=== PATIENT | female | born 1945 | race Caucasian/White ===

== ENCOUNTER 2017-12-27 11:37 | Emergency (ER) | payer MEDICARE ==
--- NOTE | 2017-12-27 11:50 | UC ---
Respiratory Complaint HPI - HPI Summary HPI Summary: 72 y/o female presents to the urgent care c/o sore throat for the past week. Pt reports dry cough and mild nasal congestion developed 3 days ago. Cough is worse at night that is not allowing her to sleep her chest feels congested. Sore throat has resolved. Yesterday she developed mild CONTE about 2/10. She took Excedrin PO and cough drops to alleviate symptoms. As per nurse Pt's HR rate was irregular at the time she took vital signs. Pt PMHX of DM type II and HTN. Pt denies fever, SOB, chest pain, palpitations, abdominal pain, N/V/D. - History of Current Complaint Stated Complaint: ST,COUGH Time Seen by Provider: 12/27/17 11:48 Hx Obtained From: Patient Onset/Duration: Gradual Onset, Lasting Weeks - 1 week, Still Present, Worse Since - 3 days ago Timing: Intermittent Episodes Severity Initially: Mild Severity Currently: Moderate Pain Intensity: 0 Pain Scale Used: 0-10 Numeric Character: Cough: Productive - yellowish Aggravating Factors: Recumbent Position Alleviating Factors: OTC Meds - cough drops and prednisone for her GOUT flare up Associated Signs And Symptoms: Positive: URI, Nasal Congestion Related History: Seasonal Allergies - Risk Factors Pulmonary Embolism Risk Factors: Negative Cardiac Risk Factors: Hypertension, Smoking, Diabetes Pseudomonas Risk Factors: Negative Tuberculosis Risk Factors: Negative - Allergies/Home Medications Allergies/Adverse Reactions: Allergies Allergy/AdvReac Type Severity Reaction Status Date / Time No Known Allergies Allergy Verified 06/16/14 14:01 Home Medications: Home Medications Allopurinol TAB* [Zyloprim 100 MG TAB*] 100 mg PO DAILY 12/27/17 [History Confirmed 12/27/17] Aspirin 81 mg CHEW TAB* 81 mg PO DAILY 12/27/17 [History Confirmed 12/27/17] Atorvastatin* [Lipitor 10 MG*] 10 mg PO DAILY 12/27/17 [History Confirmed ] Cetirizine* [ZyrTEC 10 MG TAB*] 10 mg PO DAILY 12/27/17 [History Confirmed 12/27] Chlorthalidone TAB* [Hygroton TAB*] 25 mg PO BEDTIME 12/27/17 [History Confirmed 12/27/17] Fluticasone NASAL SPRAY 50MCG* [Flonase NASAL SPRAY 50MCG*] 2 spray BOTH NARES DAILY PRN 12/27/17 [History Confirmed 12/27/17] Insulin ASPART (NF) [Novolog (NF)] 0 unit .SEE ORDER SEE INSTRUCTIONS 12/27/17 [ History Confirmed 12/27/17] Insulin GLARGINE(*) [Lantus(*)] 0 units SUBCUT ONCE 12/27/17 [History Confirmed 12/27/17] Montelukast Sodium TAB* [Singulair 10 MG TAB*] 10 mg PO DAILY 12/27/17 [History Confirmed 12/27/17] Valsartan TAB* [Diovan TAB*] 80 mg PO DAILY 12/27/17 [History Confirmed 12/27/17 ] celeCOXIB CAP* [Celebrex CAP*] 200 mg PO DAILY 12/27/17 [History Confirmed 12/27] predniSONE TAB* [Deltasone 10 MG TAB*] 10 mg PO DAILY 12/27/17 [History Confirmed 12/27/17] PMH/Surg Hx/FS Hx/Imm Hx Previously Healthy: Yes Endocrine History: Diabetes Other Endocrine History: GOUT Cardiovascular History: Hypertension - Surgical History Surgical History: Yes Surgery Procedure, Year, and Place: HERNIA REPAIR. HYSTERECTOMY - Family History Known Family History: Positive: Hypertension, Diabetes - Social History Occupation: Retired Lives: With Family Substance Use Type: None Review of Systems Constitutional: Negative Skin: Negative Eyes: Negative ENT: Sore Throat, Nasal Discharge - yellowish, Sinus Congestion Respiratory: Cough - productive Cardiovascular: Negative Gastrointestinal: Negative Genitourinary: Negative Motor: Negative Neurovascular: Negative Musculoskeletal: Negative Neurological: Negative Psychological: Negative Is Patient Immunocompromised?: No All Other Systems Reviewed And Are Negative: Yes Physical Exam - Summary Physical Exam Summary: Vital Signs Reviewed: Yes General: well developed, well nourished female sitting in the examining table w/ o any apparent distress Eyes: Positive: Conjunctiva Clear - PERRLA, EOMI, fundi grossly normal ENT: Positive: Normal ENT inspection, Hearing grossly normal, Pharynx normal, Nasal congestion - edematous and erythematous nasal mucosa, Nasal drainage - yellowish drainage, TMs normal. Negative: Tonsillar swelling, Tonsillar exudate Neck: Positive: Supple, Nontender, No Lymphadenopathy Respiratory: no orthopnea or dyspnea. Able to speak in full sentences, no retractions or accessory muscle use, no tripod position, stridor, or head bobbing. Positive breath sounds B/L. Left posterior lungs w/ scattered rhonchi , no wheezes or crackles or rales. Cardiovascular: Positive: RRR, No Murmur, Pulses Normal, Brisk Capillary Refill Abdomen Description: Positive: Nontender, No Organomegaly, Soft. Negative: CVA Tenderness (R), CVA Tenderness (L) Bowel Sounds: Positive: Present Musculoskeletal Exam: Normal Musculoskeletal: Positive: Strength Intact, ROM Intact, No Edema Neurological Exam: Normal Psychological Exam: Normal Skin Exam: Normal Triage Information Reviewed: Yes Respiratory Course/Dx - Course Course Of Treatment: 72 y/o female presents to the urgent care c/o sore throat for the past week. Pt reports dry cough and mild nasal congestion developed 3 days ago. Cough is worse at night that is not allowing her to sleep and her chest feels congested. Sore throat has resolved. Yesterday she developed mild CONTE about 2/10. She took Excedrin PO and cough drops to alleviate symptoms. As per nurse Pt's HR rate was irregular at the time she took vital signs. Pt PMHX of DM type II and HTN. Pt denies fever, SOB, chest pain, palpitations, abdominal pain, N/V/D. Hx obtained. Pt w/ posterior left lung w/ scattered rhonchi on examination. O2Sat:97%. EKG ordered due to irregular HR: NSR, HR: 83bpm ,ventricular trigemeny, No ST elevations or depresions. Chest X-ray ordered: Impression. Similar chronic findings when compared w/ chest X-ray done on 09/2017 small pleural effusion or atelectasis at the base of lower left lung as perradiologist. Pt's symptoms discussed w/ DR Schroeder and he recommended to Rx ABx since Pt is clinically presenting w/ acute bronchitis and f/u w/ PCP in 2 -3 for further management. Pt Rx Doxycycline PO, albuterol inhaler and Tessalon tabs PO to alleviate symptoms and strongly advised to f/u w/ her PCP for further management. D/C instructions explained. Pt understood and agreed w/ plan of care. - Differential Dx/Diagnosis Differential Diagnosis/HQI/PQRI: Asthma, Bronchitis, Influenza, Laryngitis, Lower Resp Infection, Sinusitis, Other - CAD, Provider Diagnoses: 1- Acute bronchitis. 2- cough. 3- Ventricular trigeminy Discharge - Sign-Out/Discharge Documenting (check all that apply): Discharge/Admit/Transfer - D/C home - Discharge Plan Condition: Stable Disposition: HOME Prescriptions: Albuterol HFA INHALER* [Ventolin HFA Inhaler*] 1 - 2 puff INH Q6H PRN #1 mdi PRN Reason: bronchospasm Benzonatate CAP* [Tessalon 100 MG CAP*] 100 mg PO TID #21 cap DOXYcycline CAP(*) [DOXYcycline 100MG CAP(*)] 100 mg PO BID #10 cap Patient Education Materials: Acute Bronchitis (ED) Referrals: Gopal Willingham MD [Primary Care Provider] - 2 Days Additional Instructions: 1-Please take full course of antibiotic to avoid resistance. 2-Take Tessalon PO tabs as directed and use the albuterol inhaler to alleviate cough. Increase fluid intake, rest and eat well. 3- If symptoms do not improve or worsen or your develop SOB with fever and severe wheezing please go immediately to the ER further evaluation and treatment. 4- F/u with your PCP in 2-3 days for further management on small pleural effusion. - Billing Disposition and Condition Condition: STABLE Disposition: Home
[2017-12-27 12:05] VITALS: BP 132/54
--- NOTE | 2017-12-27 12:51 | RAD ---
INDICATION: Cough and sore throat COMPARISON: Chest x-ray September 27, 2017 TECHNIQUE: PA and lateral views of the chest were obtained. FINDINGS: The heart and mediastinum are normal in size and contour. There is a mild degree of calcified atherosclerosis overlying the arch of the aorta. There is mild density obscuring the bilateral lung bases and causing bilateral costophrenic angle blunting similar to the previous chest x-ray. There is appearance of peripheral lung interlobular septal thickening similar in appearance to the previous chest x-ray. Otherwise the lungs are clear of lobar consolidation or other focal mass. Visualized bones are normal for the patient's age. There is no radiographic evidence of free air beneath the diaphragm IMPRESSION: CHRONIC LUNG FINDINGS DESCRIBED ABOVE INCLUDING BIBASILAR DENSITIES WHICH COULD BE ATELECTASIS AND/OR SMALL PLEURAL EFFUSION.
== END 2017-12-27 13:09 | disposition home or self-care (01) ==
LOC: UCCORT 11:37
DX: J20.9 Acute bronchitis, unspecified (principal); R00.8 Other abnormalities of heart beat; E11.9 Type 2 diabetes mellitus without complications; I10 Essential (primary) hypertension; F17.210 Nicotine dependence, cigarettes, uncomplicated; Z79.4 Long term (current) use of insulin; M10.9 Gout, unspecified
CPT/HCPCS: 71046; 93005; 99212; G0463

== ENCOUNTER 2018-05-19 18:58 | Observation (INO) | payer MEDICARE ==
[2018-05-19] MEDS ORDERED: Morphine INJ** 4 MG/ML 1 ML CARPUJECT IV ONE (19:08)
[2018-05-19] MEDS ORDERED: NS 0.9% 1000 ML* 1,000 ML IV ONE (19:08)
[2018-05-19] MEDS ORDERED: Morphine INJ* 4 MG/ML 1 ML SYRINGE (NEW SYRINGE VERSION) ONE (19:19)
[2018-05-19] MEDS ORDERED: Morphine INJ* 4 MG/ML 1 ML SYRINGE (NEW SYRINGE VERSION) IV ONE (19:21)
--- NOTE | 2018-05-19 19:22 | ED ---
Lower Extremity - HPI Summary HPI Summary: This patient is a 73 year old F BIBA to [facility] accompanied by her with a chief complaint of right ankle pain with significant deformity after falling on the mud while feeding her chickens prior to arrival. Patient any other injuries or pain from the fall. Patient had no other symptoms prior to her fall. PMHx includes DM and HTN. - History of Current Complaint Chief Complaint: EDExtremityLower Stated Complaint: RIGHT ANKLE INJURY Time Seen by Provider: 05/19/18 19:07 Hx Obtained From: Patient Mechanism Of Injury: Fall From A Standing Position Onset of Pain: Prior to Arrival Onset/Duration: Still Present Severity Initially: Moderate Severity Currently: Moderate Pain Intensity: 5 Pain Scale Used: 0-10 Numeric Timing: Constant Location: Is Discrete @ - R ankle Associated Signs And Symptoms: Positive: Negative Aggravating Factor(s): Movement Able to Bear Weight: No - Allergies/Home Medications Allergies/Adverse Reactions: Allergies Allergy/AdvReac Type Severity Reaction Status Date / Time No Known Allergies Allergy Verified 05/19/18 21:09 Home Medications: Home Medications Allopurinol TAB* [Zyloprim 300 MG TAB*] 300 mg PO DAILY 05/19/18 [History Confirmed 05/19/18] Atorvastatin* [Lipitor*] 10 mg PO DAILY 05/19/18 [History Confirmed 05/19/18] Chlorthalidone TAB* [Hygroton TAB*] 25 mg PO DAILY 05/19/18 [History Confirmed 05/19/18] Esomeprazole Magnesium [Nexium 24Hr] 20 mg PO DAILY 05/19/18 [History Confirmed 05/19/18] Fluticasone HFA 110 mcg(NF) [Flovent HFA 110 mcg(NF)] 1 inh INH BID 05/19/18 [ History Confirmed 05/19/18] Insulin Glargine,Hum.rec.anlog [Basaglar Kwikpen U-100] 10 units SUBCUT QAM [History Confirmed 05/19/18] Insulin Glargine,Hum.rec.anlog [Basaglar Kwikpen U-100] 30 units SUBCUT BEDTIME 05/19/18 [History Confirmed 05/19/18] Irbesartan (NF) [Avapro (NF)] 150 mg PO DAILY 05/19/18 [History Confirmed ] Montelukast Sodium TAB* [Singulair TAB*] 10 mg PO DAILY 05/19/18 [History Confirmed 05/19/18] PMH/Surg Hx/FS Hx/Imm Hx Endocrine/Hematology History: Reports: Hx Diabetes Cardiovascular History: Reports: Hx Hypertension - Surgical History Surgery Procedure, Year, and Place: none - Family History Known Family History: Positive: Hypertension - Social History Lives: With Family Hx Tobacco Use: No Smoking Status (MU): Never Smoked Tobacco Review of Systems Negative: Shortness Of Breath Negative: Abdominal Pain Positive: no symptoms reported Positive: Arthralgia - R ankle pain Negative: Weakness, Syncope All Other Systems Reviewed And Are Negative: Yes Physical Exam - Summary Physical Exam Summary: Appearance: Well-appearing, Well-nourished, lying in bed comfortably Skin: Warm, dry, no obvious rash Eyes: sclera anicteric, no conjunctival pallor ENT: mucous membranes moist, pharynx appears normal Neck: Supple, nontender Respiratory: Clear to auscultation, no signs of respiratory distress Cardiovascular: Normal S1, S2. No murmurs. Normal distal pulses in tibial and radial bilaterally. Good neurovascular exam with good pedal pulses Abdomen: Soft, nontender, normal active bowel sounds present Musculoskeletal: Obvious right ankle fracture with deformity and posterior displacement of the foot Neurological: A&Ox3, awake and alert, mentation is normal, speech is fluent and appropriate Psychiatric: affect is normal, does not appear anxious or depressed Triage Information Reviewed: Yes Vital Signs On Initial Exam: Initial Vitals Resp 15 05/19/18 19:21 Vital Signs Reviewed: Yes Procedures - Procedure Summary Procedure Summary: Procedure: IV conscious sedation Indication: Reduction of right ankle fracture dislocation Informed consent obtained, pre-procedure worksheet completed. Pt on monitor, with O2 and resuscitation equipment at the bedside. Pt was given propofol, 75 mg total, with good effect. Pt remained arousable to painful stimuli, but was adequately sedated for the procedure. Pt was recovered uneventfully. Diagnostics - Vital Signs Vital Signs Resp 05/19/18 19:21 15 - Laboratory Result Diagrams: 05/19/18 19:26 05/19/18 19:26 Lab Statement: Any lab studies that have been ordered have been reviewed, and results considered in the medical decision making process. - Radiology R ankle XR Radiology Interpretation Completed By: ED Physician - R Ankle XR reveals a trimalleolar fracture with dislocation CXR Radiology Interpretation Completed By: ED Physician - Negative. Post Reduction Radiology Interpretation Completed By: ED Physician - Post Reduction XR of R ankle reveals good anatomical alignment - EKG 1917 Cardiac Rate: NL - 91 BPM EKG Rhythm: Sinus Rhythm Summary of EKG Findings: Normal EKG Lower Extremity Course/Dx - Course Course Of Treatment: This is a 73-year-old woman with a history of hypertension and diabetes who sustained a mechanical fall, suffering a trimalleolar fracture with dislocation of the right ankle. Bloodwork is unremarkable. Patient is given IVF and Morphine. Patient was given 75mg of Propofol for concious sedation. Concious sedation tolerated well. Her ankle has been reduced and splinted. She'll get admitted by the hospitalist and will have surgery, hopefully tomorrow. - Diagnoses Provider Diagnoses: Trimalleolar fracture of right ankle - Physician Notifications Discussed Care Of Patient With: Carlos Traore Time Discussed With Above Provider: 20:00 Instructed by Provider To: Admit As Inpatient Discharge - Sign-Out/Discharge Documenting (check all that apply): Patient Departure - Discharge Plan Condition: Good Disposition: ADMITTED TO [facility] - Billing Disposition and Condition Condition: GOOD Disposition: Admitted to [facility] - Attestation Statements Document Initiated by Romario: Yes Documenting Scribe: Abi Mcneil Provider For Whom Romario is Documenting (Include Credential): Compa Nevarez MD Scribbroderick Attestation: Abi Posadas, scribed for Compa Nevarez MD on 05/20/18 at 0127. Scribe Documentation Reviewed: Yes Provider Attestation: The documentation as recorded by the Abi goins accurately reflects the service I personally performed and the decisions made by me, Compa Nevarez MD
[2018-05-19 19:38] LABS: ABS Basophils 0 10^3/ul (0-0.2); ABS Eosinophils 0.1 10^3/ul (0-0.6); ABS Monocytes 0.6 10^3/ul (0-0.8); ABS Neutrophils 7.1 10^3/ul (1.5-7.7); ABS Nucleated RBC 0 10^3/ul; Eosinophil % 1.3 % (0-6); Hematocrit 37 % (35-47); Hemoglobin 12.7 g/dl (12.0-16.0); Lymphocyte % 11.1 % (25-47); Mean Corpuscular HGB Conc 35 g/dl (31-36); Mean Corpuscular Hemoglobin 29 pg (27-31); Mean Corpuscular Volume 84 fL (80-97); Mean Platelet Volume 7.7 um3 (7.4-10.4); Nucleated Red Blood Cells % 0.1; Platelet Count 171 10^3/ul (150-450); Red Blood Count 4.34 10^6/ul (4.00-5.40); Red Cell Distribution Width 15 % (10.5-15); White Blood Count 8.8 10^3/ul (3.5-10.8)
[2018-05-19] MEDS ORDERED: Propofol* 10 MG/ML 20 ML BTL IV PUSH ONE (19:45)
[2018-05-19] MEDS ORDERED: Propofol* 500 MG/50 ML BTL ONE (19:48)
[2018-05-19 19:53] LABS: EGFR Non-African American 70.1 (>60)
--- NOTE | 2018-05-19 20:21 | PN ---
Progress Note - Progress Note Date of Service: 05/19/18 Note: Reduction of right ankle performed by this provider. PMS intact post reduction.
[2018-05-19] MEDS ORDERED: Ondansetron INJ* 2 MG/ML VIAL IV PRN (20:48)
[2018-05-19] MEDS ORDERED: Dextrose 50% Syringe 50 ML* 25 GM/50 ML SYRINGE IV PUSH PRN (20:48)
[2018-05-19] MEDS ORDERED: Acetaminophen TAB* 325 MG PO PRN (20:48)
[2018-05-19] MEDS ORDERED: Albuterol 2.5 MG/3 ML NEB.SOL* (0.083%) INH PRN (20:54)
[2018-05-19] MEDS ORDERED: Insulin GLARGINE(*) 1 UNITS UNIT SUBCUT ONE (21:00)
--- NOTE | 2018-05-19 22:50 | CONSULT ---
Consult Consult: CC: Right ankle HPI: 73 yo female, feeding the chickens this evening and slipped in the mud. Ankle twisted oddly and ended up going behind her and she had significant pain. Brought the ED and x-rays showed a trimall ankle fracture with a dislocation. I was called Dr. Galvez discussed sedation and relocating the ankle and I was in agreement. Follow up x-rays show excellent reduction of the dislocation and good alignment of the ankle. Splinted and admitted for definitive treatment. PMH: Diabetes, HTN, dyslipidemia, asthma, gout PSH: None Meds on admission: Allopurinol TAB* [Zyloprim 300 MG TAB*] 300 mg PO DAILY Atorvastatin* [Lipitor*] 10 mg PO DAILY Chlorthalidone TAB* [Hygroton TAB*] 25 mg PO DAILY 05/19/18 Esomeprazole Magnesium [Nexium 24Hr] 20 mg PO DAILY 05/19/18 Fluticasone HFA 110 mcg(NF) [Flovent HFA 110 mcg(NF)] 1 inh INH BID Insulin Glargine,Hum.rec.anlog [Basaglar Kwikpen U-100] 10 units SUBCUT QAM Insulin Glargine,Hum.rec.anlog [Basaglar Kwikpen U-100] 30 units SUBCUT BEDTIME Irbesartan (NF) [Avapro (NF)] 150 mg PO DAILY Montelukast Sodium TAB* [Singulair TAB*] 10 mg PO DAILY Medication allergies: NKDA FH: Noncontributory SH: She is and resides in [place] PE: General: Mature female, NAD, laying in the hospital bed. She is oriented x 3. She is of appropriate mood and affect. HEENT: Normocephalic. No ecchymosis or abrasions about the head or face Lungs: Clear CV: S1,S2 Abd: Soft, + BS Ext: R lower: + FDWS sensation, toes pink up readily after pinching, can wiggle toes easily. X-rays: Show a dislocated trimall fx, post reduction films look good with the dislocation corrected and overall alignment restored. A: Unstable right ankle fx P: D/w her that ankle congruency is very important, as a small displacement can cause significant changes quickly. Therefore an ORIF of the right ankle is recommended to restore anatomic alignment and hold the bones in place while they heal. Stressed that this does not speed healing and the thinness of the implants prevents WB on an earlier basis. Risks of surgery such as infection, scar, stiffness, non-healing of the fracture(s) and DVT/PE were some of the risks discussed. I showed her on the left where the incisions would be be and why. We would have to follow tomorrow in the OR as the is a case already booked , and if we can reasonably get her done, I will. Otherwise I can schedule her for Monday AM with no chance of being bumped or otherwise delayed.
--- NOTE | 2018-05-19 22:54 | HP ---
AMENDED REPORT NOW INCLUDES DESIGNATED COSIGNER CC: Dr. Willingham; Dr. Traore * HISTORY AND PHYSICAL: DATE OF ADMISSION: 05/19/18 PRIMARY CARE PROVIDER: Dr. Willingham. ATTENDING PHYSICIAN WHILE IN THE HOSPITAL: Dr. Gloria Lafleur * (report dictated by Usman Moreno NP). CHIEF COMPLAINT: 1. Fall. 2. Right ankle pain. HISTORY OF PRESENT ILLNESS: Ms. Galvan is a 73-year-old female patient. She carries a history of diabetes, hypertension, hyperlipidemia, mild COPD, and a history of MARLI. She is presenting to the ER today stating that she was going outside to feed her chickens and she was walking back up the hill from this and her foot gave out. She said the grass from underneath her foot gave way, it slipped, it was wet out and raining. She says she went one way and her ankle went the other way and she fell to the ground. She did not have syncope. She had no chest pain prior to or after this. No shortness of breath. She says she purely fell. When she tried getting up, she has had a significant amount of pain in her ankle. She knew she could not stand. She yelled for her who was in the barn feeding the other animals, but he did not hear her, so she crawled into the house. The was able to find her and she tried standing up, but she just could not do it, so they called 911 because she was in a significant amount of pain and the patient came into the ED. She was evaluated and found to have a right ankle fracture. She denied any chest pain, denies having any shortness of breath. She denies having any abdominal pain. No recent fevers or chills. She says typically she can walk up a flight of stairs. She does not get chest pain. She does get short of breath with that but no chest pain. She says that days leading up to this, she had had no complaints, but today she suffered unfortunately a mechanical fall and a fracture and we are asked to evaluate for admission. PAST MEDICAL HISTORY: Significant for: 1. Diabetes. 2. Hypertension. 3. Hyperlipidemia. 4. COPD. 5. MARLI. PAST SURGICAL HISTORY: She has had: 1. Hysterectomy. 2. Hernia repair. MEDICATIONS: Home meds, again, this is based on the patient's recall. We need to get a more accurate list. The patient states she is takin. Chlorthalidone 25 mg daily. 2. Singulair 10 mg p.o. daily. 3. Avapro 150 mg p.o. daily. 4. Nexium 20 mg daily. 5. Allopurinol 300 mg daily. 6. Insulin glargine 30 units at bedtime and 10 units in the morning. 7. Lipitor 1 tab p.o. daily. 8. Flovent 1 inhalation inhaled b.i.d. ALLERGIES TO MEDICATIONS: Include no known drug allergies. FAMILY HISTORY: Mother had an TX at the age of 50. Father at the age of 82 of unknown reasons. SOCIAL HISTORY: She is a former smoker. She smoked off and on between her 20s and 40s. She does not drink alcohol. Surrogate decision maker is her . REVIEW OF SYSTEMS: There is no documented fever. She is denying having any significant weight change. There is no double vision. She denied having any ear discharge. There was no rhinorrhea. There is no sore throat, no thyroid enlargement. She denies having any chest pain. There is no orthopnea, there is no nocturnal dyspnea. She denies having any abdominal pain. There was no nausea, there was no vomiting. There was no dysuria, no frequency. No seizure. There was no loss of consciousness. No pruritus and no skin ulcerations. Review of 14 systems completed, all others negative. PHYSICAL EXAMINATION GENERAL: At this time, Ms. Galvan is a 73-year-old female patient. She is sitting in the ED stretcher. She does not appear to be in any acute distress. She appears to be well nourished and well developed. VITAL SIGNS: Initially blood pressure with a pulse of 98, respirations are 15, O2 sat 98%, temperature 98.3. Her last blood pressure was 150/70. HEENT: Head is atraumatic and normocephalic. Eyes: EOMs are intact. Sclerae anicteric and not pale. Throat: Oral mucosa appears to be moist. No oropharyngeal erythema. NECK: Supple. LUNGS: Clear to auscultation bilaterally. There were no wheezes, rales, or rhonchi. HEART: Sounds S1, S2. She had a regular rate and rhythm. No murmurs, rubs, or gallops. ABDOMEN: Soft, flat, nontender. Bowel sounds were present. EXTREMITIES: Pulses were 2+ throughout. She does have distal CSM checks intact to that right ankle. She had upper extremity with 5/5 strength. NEUROLOGICAL: She is awake, alert. She is oriented x3. She had no gross focal deficits. SKIN: Intact. DIAGNOSTIC STUDIES/LAB DATA: Her labs today are revealing WBC of 8.8, RBC of 4.34, hemoglobin of 12.7, hematocrit of 37, and platelet count of 171. Her sodium was 134, potassium was 3.5, chloride was 98, bicarb 26, BUN 20, creatinine 0.80, glucose 267, calcium is 9.6. She did have an EKG obtained today, which showed a normal sinus rhythm with a rate of 91. She had no ST elevations or T-wave inversions. Chest x-ray pending. She had an ankle x-ray today, which does show a displaced right ankle fracture. Old medical records were reviewed. ASSESSMENT AND PLAN: Ms. Galvan is a 73-year-old female patient coming into the ER today with complaints of mechanical fall, found to have right ankle fracture. We were asked to evaluate for admission. She will be admitted under inpatient status for: 1. Right ankle fracture. At this point, Dr. Traore has been consulted. He will evaluate the patient today. The plan would be n.p.o. after midnight for possible open reduction and internal fixation of this ankle in the morning. Her RCRI score is 1. She has diabetes, with insulin. She has no signs of acute coronary syndrome. No chest pain with ambulation. Given her history of chronic obstructive pulmonary disease, if the chest x-ray is stable, then she is medically optimized for proposed procedure. Defer rest of the management to Dr. Traore, but I have ordered pain medication. She has been splinted here by the ED, and at this point, we will continue to follow. 2. Diabetes. I am only going to give her half of her Lantus tonight as she may have surgery tomorrow. She will be n.p.o. after midnight. I have ordered a lispro sliding scale. Tomorrow, we will need to reevaluate and get her back on her long- term insulin if she is taking a diet. 3. Hyperlipidemia. Continue statin therapy. 4. Hypertension. I am going to hold her Avapro preop and her chlorthalidone. If she does not go to surgery tomorrow, she will need those meds in the morning. We will need to follow. 5. Chronic obstructive pulmonary disease. Continue p.r.n. albuterol and I have ordered Flovent. 6. History of obstructive sleep apnea. I have ordered her a CPAP. 7. DVT prophylaxis. She is high risk, I have ordered heparin subcu. 8. Code status. Full code. 9. Fluids, electrolytes, and nutrition. She can have a consistent carb diet and then she will be n.p.o. after midnight. TIME SPENT: On the admission was 60 minutes, greater than half the time was spent [id number] with the patient obtaining my history and physical and other half the time was spent going over plan of care with the patient and implementing plan of care. I did discuss the plan of care with my attending, Dr. Lafleur; she is in agreement. USMAN MORENO, TASHIA [id number]/CPS #: [id number] NANY
[2018-05-19] MEDS: Heparin VIAL(*) 5000 UNITS/ML VIAL (FIVE THOUSAND) SUBCUT SCH (22:57)
[2018-05-19] MEDS: oxyCODONE/Acetamin 5/325 MG* TAB PO PRN (22:58)
[2018-05-19 23:10] LABS: INR 0.94 (0.77-1.02)
[2018-05-20] MEDS: Morphine INJ* 4 MG/ML 1 ML SYRINGE (NEW SYRINGE VERSION) IV PRN ×3 (01:35→09:58)
[2018-05-20] MEDS: Heparin VIAL(*) 5000 UNITS/ML VIAL (FIVE THOUSAND) SUBCUT SCH ×2 (05:47→16:45)
[2018-05-20 05:49] LABS: ABS Basophils 0 10^3/ul (0-0.2); ABS Eosinophils 0.2 10^3/ul (0-0.6); ABS Lymphocytes 1.2 10^3/ul (1.0-4.8); ABS Monocytes 0.7 10^3/ul (0-0.8); ABS Neutrophils 6.4 10^3/ul (1.5-7.7); ABS Nucleated RBC 0 10^3/ul; Eosinophil % 1.8 % (0-6); Hematocrit 36 % (35-47); Hemoglobin 12.3 g/dl (12.0-16.0); Lymphocyte % 14.6 % (25-47); Mean Corpuscular HGB Conc 35 g/dl (31-36); Mean Corpuscular Hemoglobin 29 pg (27-31); Mean Corpuscular Volume 84 fL (80-97); Mean Platelet Volume 7.7 um3 (7.4-10.4); Nucleated Red Blood Cells % 0; Platelet Count 170 10^3/ul (150-450); Red Blood Count 4.22 10^6/ul (4.00-5.40); Red Cell Distribution Width 15 % (10.5-15); White Blood Count 8.6 10^3/ul (3.5-10.8)
[2018-05-20] MEDS ORDERED: NS 0.9% 1000 ML* 1,000 ML IV SCH (05:52)
[2018-05-20 05:53] LABS: INR 0.97 (0.77-1.02)
[2018-05-20 06:02] LABS: EGFR Non-African American 80.5 (>60)
--- NOTE | 2018-05-20 07:12 | RAD ---
INDICATION: Right ankle injury. TECHNIQUE: 3 views of the right ankle were obtained. FINDINGS: There is diffuse soft tissue swelling. There is posterior dislocation of the talus relative to the tibia. There is an oblique fracture of the distal diaphysis of the fibula. The distal fragment is displaced one shaft diameter lateral and demonstrates posterior angulation relative the proximal fragment. There is a transverse intra-articular fracture of the medial malleolus. The distal fragment is displaced medially approximately 5 mm. There is also a slightly displaced intra-articular fracture of the posterior malleolus. IMPRESSION: TRIMALLEOLAR FRACTURE DISLOCATION OF THE ANKLE. R0
[2018-05-20] MEDS: Atorvastatin* 10 MG TAB PO SCH (07:18)
[2018-05-20] MEDS: Omeprazole CAP* 20 MG PO SCH (07:18)
[2018-05-20] MEDS: Montelukast Sodium TAB* 10 MG PO SCH (07:18)
--- NOTE | 2018-05-20 07:32 | RAD ---
INDICATION: COPD, INJURY. COMPARISON: There are no relevant prior studies available for comparison. TECHNIQUE: A portable view of the chest was obtained. FINDINGS: Cardiac and mediastinal contours appear to be within normal limits. The lungs are underinflated. There is mild prominence of the interstitial markings likely due to underinflation. The lungs are otherwise grossly clear. No pleural effusion is seen. IMPRESSION: NO EVIDENCE FOR ACUTE FINDING. R0
--- NOTE | 2018-05-20 07:35 | RAD ---
INDICATION: Right ankle injury status post external reduction. COMPARISON: Comparison is made with prior study of the same date from approximately 2 hours earlier. TECHNIQUE: 2 views of the right ankle were obtained. FINDINGS: The bones are visualized through a fiberglass splint. There has been interval reduction of the previously noted dislocation of the talocrural joint. There is an oblique fracture of the distal diaphysis of the fibula with the distal fragment displaced one half shaft diameter lateral. There is a transverse slightly comminuted intra-articular fracture of the medial malleolus. The fracture fragments are slightly distracted. IMPRESSION: INTERVAL RESOLUTION OF THE PREVIOUSLY NOTED DISLOCATION, FRACTURES DESCRIBED. R0
[2018-05-20] MEDS ORDERED: KCL 20 MEQ/100 ML IVPREMIX* 20 MEQ/100 ML BAG IV ONE (07:50)
[2018-05-20] MEDS: Insulin LISPRO* 1 UNITS UNIT SUBCUT SCH ×3 (09:09→18:13)
[2018-05-20] MEDS ORDERED: Morphine VIAL* 10 MG/ML 1 ML VIAL ONE ×3 (11:37→12:42)
[2018-05-20] MEDS ORDERED: Buffered Lidocaine 0.9% SYRIN* 5 ML/SYR SYRINGE INTRADERM ONE (12:03)
[2018-05-20] MEDS ORDERED: Naloxone* 0.4 MG/ML 1 ML VIAL IV PRN (12:04)
[2018-05-20] MEDS ORDERED: PROCHLORPERAZINE INJ 5 MG/ML 2 ML VIAL IV PRN (12:04)
[2018-05-20] MEDS ORDERED: DiMENhydriNATE IV* 50 MG/ML VIAL IV PUSH PRN (12:04)
[2018-05-20] MEDS ORDERED: fentaNYL* 50 MCG/ML 2 ML VIAL (100 MCG VIAL) IV PRN (12:04)
[2018-05-20] MEDS ORDERED: Levalbuterol 0.63MG/3ML NEB* UNIT OF USE INH PRN (12:04)
[2018-05-20] MEDS ORDERED: diPHENhydraMINE IV* 50 MG/ML 1 ml VIAL (BENADRYL) IV PRN (12:04)
[2018-05-20] MEDS ORDERED: fentaNYL* 50 MCG/ML 2 ML VIAL (100 MCG VIAL) ONE (12:27)
[2018-05-20] MEDS ORDERED: Midazolam* 1 MG/ML 2 ML VIAL (2 MG) ONE (12:28)
--- NOTE | 2018-05-20 12:44 | PN ---
Subjective Date of Service: 05/20/18 Interval History: Pt seen and examined. Meds and labs reviewed. CC: N/A; some pain on her right ankle if she moves it, otherwise tolerable. ROS: Denied CONTE/dizziness, F/C, N/V, CP, SOB, increased cough, sputum production , abd pain, diarrhea, constipation, dysuria, myalgias, throat pain, and new skin lesions. The rest of the 14 point ROS are unremarkable. PHYSICAL EXAM: GEN APPEARANCE: Awake, not in acute distress HEENT: NC/AT, PERRLA, moist oral mucosa, (-) throat erythema NECK: Soft, supple, (-) cervical LAD, (-)JVD HEART: S1S2 WNL, RRR, No MRG CHEST: CTA, BL, GAE, No W/R/R ABD: Soft, ND/NT, NABS 4x Q EXT: No C/C/RLE wrapped in TRICIA bandages, cdi SKIN: Warm to touch PSYCH: No active psychosis, hallucinations, depression, SI/HI Objective Active Medications: Acetaminophen (Tylenol Tab*) 650 mg PO Q4H PRN PRN Reason: FEVER/PAIN Albuterol (Ventolin 2.5 Mg/3 Ml Neb.Denisse*) 2.5 mg INH Q2H PRN PRN Reason: SOB/WHEEZING Atorvastatin Calcium (Lipitor*) 10 mg PO DAILY REPLACED BY [facility] Last Admin: 05/20/18 07:18 Dose: Not Given Dextrose (D50w Syringe 50 Ml*) 12.5 gm IV PUSH .FOR FS < 60 - SS PRN PRN Reason: FS < 60 Dimenhydrinate (Dramamine Iv*) 12.5 mg IV PUSH ONCE PRN PRN Reason: NAUSEA/VOMITING Diphenhydramine HCl (Benadryl Iv*) 12.5 mg IV ONCE PRN PRN Reason: ITCHING Fentanyl Citrate (Fentanyl*) 25 mcg IV Q5M PRN PRN Reason: PAIN - MODERATE Heparin Sodium (Porcine) (Heparin Vial(*)) 5,000 units SUBCUT Q8HR REPLACED BY [facility] Last Admin: 05/20/18 05:47 Dose: Not Given Sodium Chloride (Ns 0.9% 1000 Ml*) 1,000 mls @ 75 mls/hr IV PER RATE REPLACED BY [facility] Last Admin: 05/20/18 06:20 Dose: 75 mls/hr Lactated Ringer's (Lactated Ringers 1000 Ml Bag*) 1,000 mls @ 125 mls/hr IV PER RATE REPLACED BY [facility] Insulin Human Lispro (Humalog*) 0 units SUBCUT [facility]; Protocol Last Admin: 05/20/18 11:43 Dose: Not Given Levalbuterol HCl (Xopenex 0.63mg/3ml Neb*) 0.63 mg INH ONCE PRN PRN Reason: SOB/WHEEZING Lidocaine/Sodium Bicarbonate (Buffered Lidocaine 0.9% Syrin*) 0.2 ml INTRADERM ONCE ONE Stop: 05/20/18 12:04 Mometasone Furoate (Asmanex 220 Mcg Mdi *) 1 puff INH QPM REPLACED BY [facility] Montelukast Sodium (Singulair Tab*) 10 mg PO DAILY REPLACED BY [facility] Last Admin: 05/20/18 07:18 Dose: Not Given Morphine Sulfate (Morphine Inj (Syringe)*) 2 mg IV Q4H PRN PRN Reason: PAIN - MILD Last Admin: 05/20/18 09:58 Dose: 2 mg Naloxone HCl (Narcan*) 0.08 mg IV Q2M PRN PRN Reason: severe induced resp depression Omeprazole (Prilosec Cap*) 20 mg PO DAILY@0730 REPLACED BY [facility] Last Admin: 05/20/18 07:18 Dose: Not Given Ondansetron HCl (Zofran Inj*) 4 mg IV Q6H PRN PRN Reason: NAUSEA Oxycodone/Acetaminophen (Percocet 5/325 Tab*) 1 tab PO Q6H PRN PRN Reason: PAIN Last Admin: 05/19/18 22:58 Dose: 1 tab Prochlorperazine Edisylate (Compazine Inj*) 2.5 mg IV ONCE PRN PRN Reason: NAUSEA/VOMITING Vital Signs - 8 hr 05/20/18 05/20/18 05/20/18 05:41 06:57 07:55 Temperature 97.9 F Pulse Rate 91 Respiratory 16 16 16 Rate Blood Pressure 136/63 (mmHg) O2 Sat by Pulse 96 Oximetry 05/20/18 09:58 Temperature Pulse Rate Respiratory 18 Rate Blood Pressure (mmHg) O2 Sat by Pulse Oximetry Oxygen Devices in Use Now: None Result Diagrams: 05/20/18 05:24 05/20/18 05:24 Assess/Plan/Problems-Billing Assessment: - Patient Problems (1) Ankle fracture, right Current Visit: Yes Status: Acute Code(s): S82.891A - OTH FRACTURE OF RIGHT LOWER LEG, INIT FOR CLOS FX SNOMED Code(s): 58147577 Comment: -For possible ORIF today or tomorrow -Appreciate Dr. Ryan input -Continue PRN pain meds (Fentanyl, Morphine, Percocet, and Tylenol) -Defer pain management with Ortho (2) Diabetes 1.5, managed as type 2 Current Visit: Yes Status: Acute Code(s): E10.9 - TYPE 1 DIABETES MELLITUS WITHOUT COMPLICATIONS SNOMED Code(s): 920301320 Comment: -Relatively well-controlled -Continue Lantus and ISS -Continue FS surveillance (3) Hyperlipidemia Current Visit: Yes Status: Acute Code(s): E78.5 - HYPERLIPIDEMIA, UNSPECIFIED SNOMED Code(s): 48302401 Comment: -Continue atorvastatin (4) HTN (hypertension) Current Visit: Yes Status: Acute Code(s): I10 - ESSENTIAL (PRIMARY) HYPERTENSION SNOMED Code(s): 79187305 Comment: -Well-controlled at this time while off on home Avapro and Chlorthalidone -Data is somewhat ambiguous for holding TRICIA/ARBs in perioperative setting, however, since she is currently hemodynamically stable, will continue to hold -No controversies in holding diuretics pre-operatively -Continue watchful waiting (5) COPD (chronic obstructive pulmonary disease) Current Visit: Yes Status: Acute Code(s): J44.9 - CHRONIC OBSTRUCTIVE PULMONARY DISEASE, UNSPECIFIED SNOMED Code(s): 02284088 Comment: -Not in acute exacerbation (6) DVT prophylaxis Current Visit: Yes Status: Acute Code(s): YMN5563 - SNOMED Code(s): 232513362 Comment: -Continue Heparin SQq8H Status and Disposition: -As above -For PT/OT eval
[2018-05-20] MEDS ORDERED: Morphine VIAL* 4 MG/ML VIAL (1 ml vial) IV ONE (12:50)
[2018-05-20] MEDS ORDERED: ceFAZolin 2 GM PREMIX in ORs 2 GM/50 ML BAG IVPB ONE (12:50)
[2018-05-20] MEDS ORDERED: Rocuronium* 10 MG/ML VIAL ONE (13:27)
[2018-05-20] MEDS ORDERED: Dexamethasone IV* 4 MG/ML 1 ML (4 MG) ONE (13:42)
[2018-05-20] MEDS ORDERED: Propofol* 10 MG/ML 20 ML BTL IV PUSH ONE (13:42)
[2018-05-20] MEDS ORDERED: Famotidine IV* 10 MG/ML 2 ML (20 mg) ONE (13:42)
[2018-05-20] MEDS ORDERED: Bupivacaine 0.25% W/EPI* 10 ML SDV ONE (13:47)
[2018-05-20] MEDS ORDERED: Lidocaine 2% PF * 5 ML VIAL ONE (13:47)
[2018-05-20] MEDS ORDERED: Sugammadex * 200 MG/2 ML VIAL IV PUSH ONE (14:49)
[2018-05-20] MEDS ORDERED: Levalbuterol HFA INHALER* 1 PUFF MDI ONE (14:59)
[2018-05-20] MEDS ORDERED: diPHENhydraMINE IV* 50 MG/ML 1 ml VIAL (BENADRYL) ONE (15:16)
[2018-05-20] MEDS ORDERED: DiMENhydriNATE IV* 50 MG/ML VIAL ONE (15:17)
--- NOTE | 2018-05-20 15:22 | RAD ---
INDICATION: Right ankle operative reduction and internal fixation. COMPARISON: Comparison is made with a prior x-ray studies of the right ankle from May 19, 2018. TECHNIQUE: 24.7 seconds of intermittent fluoroscopic guidance were provided and 4 spot films of the right ankle were obtained in the operating room. FINDINGS: The films demonstrate placement of a surgical screw stabilizing the fracture of the medial malleolus. There is also placement of a metallic side plate along the lateral aspect of the distal fibula spanning the fracture fragments transfixed with multiple screws. IMPRESSION: INTRAOPERATIVE CONTROL FILMS. CPT II Codes: G9500
[2018-05-20] MEDS: Mometasone 220 MCG MDI INH SCH (18:14)
[2018-05-20] MEDS: ceFAZolin 1 GM* X 3 DOSES POST-OP Q8H (AddVan) IVPB SCH ×2 (21:22)
[2018-05-21] MEDS: oxyCODONE/Acetamin 5/325 MG* TAB PO PRN ×2 (00:22→18:01)
[2018-05-21] MEDS: Morphine INJ* 4 MG/ML 1 ML SYRINGE (NEW SYRINGE VERSION) IV PRN ×3 (01:35→09:19)
--- NOTE | 2018-05-21 01:37 | OP ---
DATE OF OPERATION: 05/20/18 - ROOM #[id number] DATE OF : 43 SURGEON: Carlos Traore MD ANESTHESIA: General. PRE-OP DIAGNOSIS: Right trimalleolar ankle fracture. POST-OP DIAGNOSIS: Right trimalleolar ankle fracture. OPERATIVE PROCEDURE: Open reduction/internal fixation, right ankle fracture. ESTIMATED BLOOD LOSS: Less than 20 cc. COMPLICATIONS: None. SUMMARY: Ms. Galvan is a 73-year-old female, who yesterday evening was feeding her chickens when she slipped in the mud sustaining a fracture dislocation of her right ankle. She underwent a closed reduction with sedation in the emergency room and they had restored the talus under the tibia. I saw her afterwards and discussed with her that an ORIF should work well to hold the bone in place to make sure she heals in an anatomic position. Risks of surgery such as infections, scar formations, stiffness, DVT, pulmonary embolism, and hardware failure were some of the risks discussed. She had wished to proceed. DESCRIPTION OF PROCEDURE: The patient was brought to the OR and an LMA was placed. Tourniquet was placed over the right calf, but was not used during the case. Right foot and ankle was prepped and then draped. Glove was placed over the toes to seal them off and C-arm was brought into confirm the reduction. Her reduction was actually quite good, but the fibula was still mildly displaced. Skin over the incisional area was infiltrated using 0.25% Marcaine with epinephrine and a lateral incision was made directly over the anterior aspect of the fibula. Incision was carried down through the skin and then blunt dissection was carried down towards the fibula so I would not injure her superficial peroneal nerve in case it transversed across the incision line. Nerve was not seen. Fracture, however, was immediately evident. Hematoma was scraped from the edges of the bone and the sharp spicules of bone were realigned so that she was much more anatomic. Bone clamp was placed and C-arm was brought in and used and her alignment was now perfect. It appeared a 6- hole plate would work well and in standard AO fashion plate was applied and holes were drilled. At the center portion, the fracture was directly over so the lower center screw did not receive a screw. C-arm was checked and again her alignment was still excellent, so I thought we would be able to close laterally and this would also aid with closure later. Wound was irrigated using a bulb syringe and the fascia was closed over the plate. Subcutaneous tissues were reapproximated and attention was turned medially. Incision was made over the tibia and was carried down and curved a little bit towards the toes at the very end. Again, incision was just carried down through the skin and then hematoma was evacuated. I had exposed right along the periosteum of the tibia and using the dental pick, a little bit of periosteum was picked out and the medial malleolar piece was perfect by C-arm. 2- mm guidewire was placed , but this was a little too posterior and I continued to place the 2-mm K-wires until I finally had a nice angle with one of them. Drill guide was placed over this and the K-wire was removed and the 2.5 mm drill was then run over that. Depth gauge was used and a 40-mm partially threaded cancellous screw was placed and a nice bite was obtained. Final C-arm pictures were saved with AP, lateral , and mortise views. On the last mortise view, I ended up tightening down the screw just a little bit more to try and get the screw head downwards and I did not split the bone and view was repeated and saved again. Medial site was irrigated using a bulb syringe and the subcutaneous tissues were approximated with 2-0 Vicryl. Skin on both sides were closed using yola, sterile dressing , and an Edenilson wrap was applied. Sugar tong splint was also applied. The patient was then had the LMA removed in the OR and was stable on transfer to the recovery room. [id number]/MAYO #: [id number] NANY
[2018-05-21] MEDS: ceFAZolin 1 GM* X 3 DOSES POST-OP Q8H (AddVan) IVPB SCH ×4 (04:52→13:04)
[2018-05-21 05:56] LABS: ABS Basophils 0.1 10^3/ul (0-0.2); ABS Eosinophils 0 10^3/ul (0-0.6); ABS Lymphocytes 0.8 10^3/ul (1.0-4.8); ABS Monocytes 0.8 10^3/ul (0-0.8); ABS Neutrophils 9.5 10^3/ul (1.5-7.7); ABS Nucleated RBC 0 10^3/ul; Eosinophil % 0 % (0-6); Hematocrit 33 % (35-47); Hemoglobin 11.4 g/dl (12.0-16.0); Lymphocyte % 7.4 % (25-47); Mean Corpuscular HGB Conc 35 g/dl (31-36); Mean Corpuscular Hemoglobin 29 pg (27-31); Mean Corpuscular Volume 85 fL (80-97); Mean Platelet Volume 7.9 um3 (7.4-10.4); Nucleated Red Blood Cells % 0; Platelet Count 176 10^3/ul (150-450); Red Cell Distribution Width 15 % (10.5-15); White Blood Count 11.2 10^3/ul (3.5-10.8)
[2018-05-21 06:14] LABS: EGFR Non-African American 71.1 (>60)
[2018-05-21] MEDS ORDERED: Magnesium Sulf 4 GM/100 ML IV* 4,000 MG/100 ML BAG IVPB ONE (07:31)
[2018-05-21] MEDS: Atorvastatin* 10 MG TAB PO SCH (09:07)
[2018-05-21] MEDS: Omeprazole CAP* 20 MG PO SCH (09:07)
[2018-05-21] MEDS: Montelukast Sodium TAB* 10 MG PO SCH (09:07)
[2018-05-21] MEDS: Heparin VIAL(*) 5000 UNITS/ML VIAL (FIVE THOUSAND) SUBCUT SCH ×2 (09:08→17:27)
[2018-05-21] MEDS: Insulin LISPRO* 1 UNITS UNIT SUBCUT SCH ×3 (09:08→17:27)
[2018-05-21] MEDS ORDERED: HYDROmorphone INJ1* 1 MG/ML SYRINGE IV SLOW PU PRN (11:03)
--- NOTE | 2018-05-21 14:17 | PN ---
Progress Note - Progress Note Date of Service: 05/21/18 SOAP: Subjective: [] Patient seen and examined at beside. She continues to have right ankle pain but states that the narcotic pain medications are making her nauseous so she wants to limit use. Denies CP, SOB, dizziness, RLE numbness. Objective: []General: Well appearing, NAD RLE: Splint CDI. No erythema proximally or distally, no skin breakdown at edges. Sensation intact distally, able to flex and extend MTPs, capillary refill less than two seconds distally. Left calf without erythema, edema or palpable cords Assessment: [] Right ankle fracture SP ORIF Plan: []NWB RLE Keep splint CDI until appt in 10-14 days post op Okay for DC from orthopedic standpoint, will need chemical DVT prophylaxis at D/ C either lovenox or aspirin until f/u appt Vital Signs Temp 98.1 F 05/21/18 07:42 Pulse 96 05/21/18 07:42 Resp 18 05/21/18 13:09 BP 144/84 05/21/18 11:55 Pulse Ox 93 05/21/18 07:42 Intake & Output 05/20/18 05/21/18 05/21/18 18:59 06:59 18:59 Intake Total 1300 1060 580 Output Total 700 1500 Balance 600 -440 580 Weight 174 lb Intake: IV Fluids 1300 810 ABX - CEFAZOLIN 110 NS 700 lactated ringers 1300 IVPB 100 Oral 250 480 Output: Urine 600 1500 Emesis 100 Other: Estimated Void Medium Laboratory Last Values WBC 11.2 10^3/ul (3.5-10.8) H 05/21/18 05:25 RBC 3.90 10^6/ul (4.00-5.40) L 05/21/18 05:25 Hgb 11.4 g/dl (12.0-16.0) L 05/21/18 05:25 Hct 33 % (35-47) L 05/21/18 05:25 MCV 85 fL (80-97) 05/21/18 05:25 MCH 29 pg (27-31) 05/21/18 05:25 MCHC 35 g/dl (31-36) 05/21/18 05:25 RDW 15 % (10.5-15) 05/21/18 05:25 Plt Count 176 10^3/ul (150-450) 05/21/18 05:25 MPV 7.9 um3 (7.4-10.4) 05/21/18 05:25 Neut % (Auto) 85.3 % (38-83) H 05/21/18 05:25 Lymph % (Auto) 7.4 % (25-47) L 05/21/18 05:25 [place] % (Auto) 6.8 % (0-7) 05/21/18 05:25 Eos % (Auto) 0 % (0-6) 05/21/18 05:25 Baso % (Auto) 0.5 % (0-2) 05/21/18 05:25 Absolute Neuts (auto) 9.5 10^3/ul (1.5-7.7) H 05/21/18 05:25 Absolute Lymphs (auto) 0.8 10^3/ul (1.0-4.8) L 05/21/18 05:25 Absolute Monos (auto) 0.8 10^3/ul (0-0.8) 05/21/18 05:25 Absolute Eos (auto) 0 10^3/ul (0-0.6) 05/21/18 05:25 Absolute Basos (auto) 0.1 10^3/ul (0-0.2) 05/21/18 05:25 Absolute Nucleated RBC 0 10^3/ul 05/21/18 05:25 Nucleated RBC % 0 05/21/18 05:25 INR (Anticoag Therapy) 0.97 (0.77-1.02) 05/20/18 05:24 APTT 29.3 seconds (26.0-36.3) 05/19/18 10:55 Sodium 136 mmol/L (135-145) 05/21/18 05:25 Potassium 3.8 mmol/L (3.5-5.0) 05/21/18 05:25 Chloride 100 mmol/L (101-111) L 05/21/18 05:25 Carbon Dioxide 28 mmol/L (22-32) 05/21/18 05:25 Anion Gap 8 mmol/L (2-11) 05/21/18 05:25 BUN 13 mg/dL (6-24) 05/21/18 05:25 Creatinine 0.79 mg/dL (0.51-0.95) 05/21/18 05:25 Est GFR ( Amer) 86.1 (>60) 05/21/18 05:25 Est GFR (Non-Af Amer) 71.1 (>60) 05/21/18 05:25 BUN/Creatinine Ratio 16.5 (8-20) 05/21/18 05:25 Glucose 191 mg/dL (70-100) H 05/21/18 05:25 POC Glucose (mg/dL) 184 mg/dL (70-100) H 05/21/18 11:06 Calcium 8.7 mg/dL (8.6-10.3) 05/21/18 05:25 Phosphorus 3.3 mg/dL (2.5-5.0) 05/21/18 05:25 Magnesium 1.3 mg/dL (1.9-2.7) L 05/21/18 05:25 Total Bilirubin 0.40 mg/dL (0.2-1.0) 05/21/18 05:25 AST 22 U/L (13-39) 05/21/18 05:25 ALT 24 U/L (7-52) 05/21/18 05:25 Alkaline Phosphatase 88 U/L (34-104) 05/21/18 05:25 Total Protein 6.2 g/dL (6.4-8.9) L 05/21/18 05:25 Albumin 3.8 g/dL (3.2-5.2) 05/21/18 05:25 Globulin 2.4 g/dL (2-4) 05/21/18 05:25 Albumin/Globulin Ratio 1.6 (1-3) 05/21/18 05:25
[2018-05-21] MEDS ORDERED: HYDROmorphone INJ1* 1 MG/ML SYRINGE IV SLOW PU ONE (14:59)
[2018-05-21] MEDS ORDERED: traMADol TAB* 50 MG PO PRN (15:09)
[2018-05-21] MEDS: Mometasone 220 MCG MDI INH SCH (18:04)
[2018-05-21 18:14] VITALS: BP 174/71
--- NOTE | 2018-05-22 06:57 | DS ---
CC: Dr. Lafleur; Dr. Compa Nevarez; Dr. Gopal Willingham * DISCHARGE SUMMARY: DATE OF ADMISSION: 05/19/18 DATE OF DISCHARGE: 05/21/18 DISCHARGE DIAGNOSES: As follows: 1. Right trimalleolar ankle fracture, status post open reduction internal fixation on 05/20/[address] Traore. 2. History of diabetes mellitus, well controlled. 3. History of hyperlipidemia. 4. History of hypertension, well controlled. 5. Chronic obstructive pulmonary disease, not in acute exacerbation. DISCHARGE MEDICATIONS: As follows: 1. Tylenol 650 mg p.o. q.6 p.r.n. 2. Atorvastatin 10 mg p.o. daily. 3. Esomeprazole 20 mg p.o. daily. 4. Fluticasone HFA 110 mcg 1 inhalation b.i.d. 5. Montelukast sodium 10 mg p.o. daily. 6. Percocet 5/325 1 tab p.o. q.6 p.r.n. 12 tabs dispensed with zero refills- patient advised to follow up with either PCP and/or Orthopedic Surgery if patient will need refills. 7. Tramadol 100 mg p.o. q.6 p.r.n. 30 tabs dispensed with zero refills. Once again patient to follow up with PCP and/or orthopedic surgeon for refills. 8. Albuterol HFA 1 to 2 puffs inhalation q.6 p.r.n. 9. Allopurinol 400 mg p.o. daily. 10. Aspirin 81 mg p.o. daily. 11. Benzonatate 100 mg p.o. t.i.d. 12. Cetirizine 10 mg p.o. daily. 13. Chlorthalidone 25 mg p.o. b.i.d. 14. Lovenox 40 mg subcu daily 14 syringes dispensed with 0 refills. We will defer with any refills with Orthopedic Surgery on followup. 15. Fluticasone 2 sprays both nares daily. 16. Insulin glargine 30 units subcu q.h.s. and 10 units subcu q.a.m. 17. Valsartan 80 mg p.o. daily. HISTORY OF PRESENT ILLNESS/HOSPITAL COURSE: The patient is a 73-year-old lady with a history of diabetes, hypertension, hyperlipidemia, and COPD, who presented to the ED after a fall with right ankle pain. More specifically she mentions that on 05/19/18, she was feeding her chickens and was walking back uphill and all of the sudden her foot "gave out." She mentions that the grass underneath her foot gave way and she slipped given it was wet and raining at that time. She mentions that she saw her right ankle go one way while the rest of her body went the other as she fell to the ground. She denied any syncope, any chest pain, no prodromal symptoms, no loss of consciousness after her fall. In the ED, she was found to have a right trimalleolar fracture, and then subsequently underwent an ORIF of the aforementioned fracture on 05/20/18. She had remained hemodynamically stable and will be discharged on the pharmacologic DVT prophylaxis. She was also advised to have her blood drawn in 3 days and discuss results with her PCP to see if she will need any magnesium supplementations. The patient was advised to follow up and recall her PCP within 3 days post discharge. She was advised to not weight bear on the right lower extremity and keep a splint CBI until her appointment with Orthopedics in about 10 to 14 days. She was advised to call Dr. Traore's office to make/confirm her appointment at [phone]. She was advised if her symptoms resume or develop new ones or feel unwell for any reason, then she is to call her PCP. If her PCP cannot entertain her due to scheduling issues alone, she was advised to call [facility] if the issues consider non-emergent. She was advised to call my office for any questions, concerns, or further clarifications regarding her discharge plans and/or prescriptions and to take her medication as prescribed. REVIEW OF SYSTEMS: The patient complains of some right ankle pain prior to her discharge and was given a 1 time dose of Dilaudid. Other than this, she denies any headaches, dizziness, fevers, chills, nausea, vomiting, chest pain, shortness of breath, increased cough nor sputum production, abdominal pain, diarrhea, constipation, pain and/or increasing in urination, throat pain, or new skin lesions. The rest of the 14-point review of systems is otherwise unremarkable. PHYSICAL EXAMINATION: Shows the most recent vital signs of record with blood pressure of 144/84, 18 per minute respiratory rate. General Appearance: The patient is awake, alert, and oriented x3, not in acute distress. HEENT: Normocephalic, atraumatic. PERRLA. Extraocular muscles intact. Negative for icterus. Moist oral mucosa. Negative throat erythema. Neck is soft, supple with no cervical lymphadenopathy, no JVD. Heart: S1, S2 within normal limits. Regular rate and rhythm. No murmurs, rubs, or gallops. Chest: Clear to auscultation bilaterally. Good air entry. No wheezes, rales, or rhonchi. Abdomen is soft, nondistended, nontender. Normoactive bowel sounds x4 quadrants. Extremities: No cyanosis, clubbing with right CBI. Psychiatric: No active psychosis, depression, suicidal or homicidal ideations. Skin is warm to touch. TIME SPENT: The total time spent evaluating the patient, reviewing pertinent data, and appropriate documentation is 40 minutes. [id number]/[facility] #: [id number] MTDD
== END 2018-05-21 16:30 | disposition home or self-care (01) ==
LOC: ED 18:58 → INTOOBSV 20:44 → MERGE 20:44 → SSU 20:44
PROVIDERS: ADMIT Internal Medicine; ATTEND Student in an Organized Health Care Education/Training Program
DX: S82.851A Displaced trimalleolar fracture of right lower leg, initial encounter for closed fracture (principal); W19.XXXA Unspecified fall, initial encounter; E11.9 Type 2 diabetes mellitus without complications; I10 Essential (primary) hypertension; E78.5 Hyperlipidemia, unspecified; J44.9 Chronic obstructive pulmonary disease, unspecified; G47.33 Obstructive sleep apnea (adult) (pediatric); Z79.4 Long term (current) use of insulin; Z79.899 Other long term (current) drug therapy; Z87.891 Personal history of nicotine dependence
CPT/HCPCS: 36415; 71045; 76001; 80048; 80053; 83735; 84100; 85025; 85610; 85730; 93005; 96365; 96375; 96376; 99285; A9270-GY; G0378; G8978-GP-CM; G8979-GP-CI; G8987-GO-CJ; G8988-GO-CI; J0690; J1100; J1200; J1240; J1644; J2250; J2270; J2405; J2704; J3010; J3475; J3480

== ENCOUNTER 2018-12-07 13:58 | Emergency (ER) | payer MEDICARE ==
[2018-12-07 15:08] VITALS: BP 134/62
--- NOTE | 2018-12-07 16:02 | UC ---
Skin Complaint HPI - HPI Summary HPI Summary: 73 -year-old female who removed a tick from her left side of her neck that was not engorged. She believes it's been in place less than 24 hours. - History of Current Complaint Chief Complaint: UCSkin Time Seen by Provider: 12/07/18 16:01 Stated Complaint: SKIN CONCERN-RECHECK Hx Obtained From: Patient ?: No Onset/Duration: Sudden Onset Skin Exposure Onset/Duration: Hours Ago Timing: Constant Onset Severity: Mild Current Severity: Mild Pain Intensity: 4 Location: Other - Left-sided neck Character: Pruritus, Redness, Raised - Small red raised area left-sided neck. Aggravating Factor(s): Nothing Alleviating Factor(s): Nothing Associated Signs & Symptoms: Positive: Negative - Allergy/Home Medications Allergies/Adverse Reactions: Allergies Allergy/AdvReac Type Severity Reaction Status Date / Time No Known Allergies Allergy Verified 12/07/18 14:59 Home Medications: Home Medications Calcium Citrate TAB* [Citracal TAB*] 200 mg PO DAILY 12/07/18 [History Confirmed 12/07/18] Magnesium Oxide [Magnesium] 400 mg PO DAILY 12/07/18 [History Confirmed 12/07/18 ] Multivitamins/Minerals TAB* [Theragran/minerals TAB*] 1 tab PO DAILY 12/07/18 [ History Confirmed 12/07/18] PMH/Surg Hx/FS Hx/Imm Hx Previously Healthy: Yes Cardiovascular History: Hypertension Respiratory History: COPD - Surgical History Surgical History: Yes Surgery Procedure, Year, and Place: hysterectomy at the age of 26. Hernia operation in her 30's - Family History Known Family History: Positive: Hypertension, Diabetes - Social History Occupation: Retired Alcohol Use: None Substance Use Type: None Smoking Status (MU): Never Smoked Tobacco Length of Time of Smoking/Using Tobacco: Various Amounts On and Off for 30 Years When Did the Patient Quit Smoking/Using Tobacco: 1990 - Immunization History Most Recent Influenza Vaccination: fall 2017 Most Recent Pneumonia Vaccination: patient recieved but not sure the year Review of Systems All Other Systems Reviewed And Are Negative: Yes Skin: Positive: Other - Very small red raised area to the left side of neck. Tick is not embedded at this time. Is Patient Immunocompromised?: No Physical Exam Triage Information Reviewed: Yes Appearance: Well-Appearing, No Pain Distress, Well-Nourished Vital Signs: Initial Vital Signs Temp 97.9 F 12/07/18 15:00 Pulse 78 12/07/18 15:00 Resp 18 12/07/18 15:00 BP 134/62 12/07/18 15:00 Pulse Ox 97 12/07/18 15:00 Vital Signs Reviewed: Yes Skin: Positive: Other - The tick has been removed by the patient. There is a small approximately 1.0 cm in diameter circular red area which is raised and mildly itchy. Course/Dx - Course Course Of Treatment: Patient was mostly concerned that she had gotten the tick completely out and she preferred not to take the prophylaxis since the tick was not engorged and it was not embedded more than 24 hours. - Diagnoses Provider Diagnosis: Tick bite of neck Discharge - Sign-Out/Discharge Documenting (check all that apply): Patient Departure All imaging exams completed and their final reports reviewed: No Studies - Discharge Plan Condition: Good Disposition: HOME Patient Education Materials: Tick Bite (ED) Referrals: Gopal Willingham MD [Primary Care Provider] - Additional Instructions: Follow-up with your primary care provider if you develops any symptoms of illness, fever, chills, joint aches or rashes over the next 2-4 weeks. - Billing Disposition and Condition Condition: GOOD Disposition: Home - Attestation Statements Provider Attestation: Per institutional requirements, I have reviewed the chart, however, I was not consulted specifically or made aware of this patient by the midlevel provider. I did not personally evaluate, interact with , or disposition this patient.
== END 2018-12-07 16:16 | disposition home or self-care (01) ==
LOC: UCCORT 13:58
DX: S10.96XA Insect bite of unspecified part of neck, initial encounter (principal); J44.9 Chronic obstructive pulmonary disease, unspecified; I10 Essential (primary) hypertension; Z87.891 Personal history of nicotine dependence; W57.XXXA Bitten or stung by nonvenomous insect and other nonvenomous arthropods, initial encounter
CPT/HCPCS: 99211; G0463

== ENCOUNTER 2019-01-28 05:22 | Day surgery (SDC) | payer MEDICARE ==
[2019-01-28] MEDS ORDERED: Buffered Lidocaine 1% SYRIN* 1 ML/SYRINGE INTRADERM ONE ×2 (06:09→09:43)
[2019-01-28] MEDS ORDERED: ceFAZolin 2 GM in NS PREMIX(*) 2 GM/100 ML BAG IVPB ONE (06:10)
[2019-01-28] MEDS ORDERED: Lidocaine 2% PF * 5 ML VIAL ONE (06:54)
[2019-01-28] MEDS ORDERED: Propofol* 10 MG/ML 20 ML BTL ONE ×2 (06:54)
[2019-01-28] MEDS ORDERED: Bupivacaine 0.5%* 50 ML VIAL ONE (07:04)
[2019-01-28] MEDS ORDERED: fentaNYL* 50 MCG/ML 2 ML VIAL (100 MCG VIAL) ONE (07:42)
[2019-01-28] MEDS ORDERED: oxyCODONE TAB* 5 MG TAB PO PRN (07:47)
[2019-01-28] MEDS ORDERED: Naloxone* 0.4 MG/ML 1 ML VIAL IV PRN (07:47)
[2019-01-28] MEDS ORDERED: fentaNYL* 50 MCG/ML 2 ML VIAL (100 MCG VIAL) IV PRN (07:47)
[2019-01-28] MEDS ORDERED: Metoclopramide IV* 5 MG/ML 2 ML VIAL IV PRN (07:47)
[2019-01-28] MEDS ORDERED: Acetaminophen TAB* 325 MG PO PRN (07:47)
[2019-01-28] MEDS ORDERED: Ketorolac INJ* 30 MG/ML 1 ML VIAL ONE (07:50)
[2019-01-28] MEDS ORDERED: Ondansetron INJ* 2 MG/ML VIAL ONE (07:50)
[2019-01-28 08:07] VITALS: BP 133/69
[2019-01-28] MEDS ORDERED: Lactated Ringers 1000 ML Bag* 1,000 ML IV SCH (10:00)
--- NOTE | 2019-01-31 08:16 | OP ---
DATE OF OPERATION: 01/28/19 - [facility] DATE OF : 43 ATTENDING SURGEON: Bashir Briseno MD LCAC OPERATOR: Sonya Palma PA-C PRE-OP DIAGNOSES: Painful hardware right ankle, previous bimalleolar ankle fracture. POST-OP DIAGNOSES: Painful hardware right ankle, previous bimalleolar ankle fracture. OPERATIVE PROCEDURE: Removal of hardware, lateral and medial malleolus. DESCRIPTION OF PROCEDURE: The patient was taken to the operating room where a longitudinal incision was made laterally over the fibula. We readily identified the plate with the interfragmentary screws. These were removed with the appropriate screw truck driver as well as the plate. Medially, a 2-cm incision was made at the medial malleolus and similar ready identification of the medial malleolar screw enabled smooth removal. Both wounds were irrigated and closed with Monocryl and nylon sutures and a compression dressing was applied. [id number]/[facility] #: [id number] MTDD
== END 2019-01-28 08:55 | disposition home or self-care (01) ==
LOC: OR 05:22
PROVIDERS: ATTEND Orthopaedic Surgery
DX: T84.84XA Pain due to internal orthopedic prosthetic devices, implants and grafts, initial encounter (principal); S82.841D Displaced bimalleolar fracture of right lower leg, subsequent encounter for closed fracture with routine healing; X58.XXXD Exposure to other specified factors, subsequent encounter; Y92.9 Unspecified place or not applicable; G47.33 Obstructive sleep apnea (adult) (pediatric); E78.5 Hyperlipidemia, unspecified; R80.9 Proteinuria, unspecified; E11.9 Type 2 diabetes mellitus without complications; Z79.4 Long term (current) use of insulin; J44.9 Chronic obstructive pulmonary disease, unspecified; I10 Essential (primary) hypertension; M81.0 Age-related osteoporosis without current pathological fracture; Z87.891 Personal history of nicotine dependence; F32.9 Major depressive disorder, single episode, unspecified
CPT/HCPCS: 88300; J0690; J1885; J2405; J2704; J3010; J3490

== ENCOUNTER 2019-07-18 12:06 | Emergency (ER) | payer MEDICARE ==
[2019-07-18 13:16] VITALS: BP 124/66
--- NOTE | 2019-07-18 13:49 | UC ---
Throat Pain/Nasal [place] HPI - HPI Summary HPI Summary: 74 yo female with right sided facial swelling noted last pm does not feel ill - History of Current Complaint Chief Complaint: UCGeneralIllness Stated Complaint: RT FACAL SWELLING Time Seen by Provider: 07/18/19 13:37 Hx Obtained From: Patient Onset/Duration: Gradual Onset, Lasting Days Severity: Mild Pain Intensity: 0 Pain Scale Used: 0-10 Numeric Cough: None Associated Signs & Symptoms: Positive: Negative - Epiglottits Risk Factors Epiglottis Risk Factors: Negative - Allergies/Home Medications Allergies/Adverse Reactions: Allergies Allergy/AdvReac Type Severity Reaction Status Date / Time cigarette smoke Allergy Mild Unknown Verified 07/18/19 13:05 Reaction Details perfume Allergy Unknown Verified 07/18/19 13:05 Reaction Details Home Medications: Home Medications Valsartan TAB* [Diovan TAB*] 80 mg PO DAILY 07/18/19 [History Confirmed 07/18/19 ] PMH/Surg Hx/FS Hx/Imm Hx Previously Healthy: Yes Endocrine History: Diabetes, Thyroid Disease Cardiovascular History: Hypertension - Surgical History Surgical History: Yes Surgery Procedure, Year, and Place: Hysterectomy at the age of 26. Inguinal Hernia repair in her 30's. [place] [facility] [place] Family History Known Family History: Positive: Hypertension, Diabetes - Social History Alcohol Use: None Substance Use Type: None Smoking Status (MU): Never Smoked Tobacco Length of Time of Smoking/Using Tobacco: Various Amounts On and Off for 30 Years When Did the Patient Quit Smoking/Using Tobacco: 1990 - Immunization History Most Recent Influenza Vaccination: fall 2017 Most Recent Pneumonia Vaccination: patient recieved but not sure the year Review of Systems All Other Systems Reviewed And Are Negative: Yes Constitutional: Positive: Negative Skin: Positive: Negative Eyes: Positive: Negative ENT: Positive: Negative Respiratory: Positive: Negative Cardiovascular: Positive: Negative Gastrointestinal: Positive: Negative Genitourinary: Positive: Negative Motor: Positive: Negative Neurovascular: Positive: Negative Musculoskeletal: Positive: Negative Neurological: Positive: Negative Psychological: Positive: Negative Physical Exam Triage Information Reviewed: Yes Appearance: Well-Appearing, No Pain Distress, Well-Nourished Vital Signs: Initial Vital Signs Temp 97.6 F 07/18/19 13:10 Pulse 86 07/18/19 13:10 Resp 14 07/18/19 13:10 BP 124/66 07/18/19 13:10 Pulse Ox 97 07/18/19 13:10 Vital Signs Reviewed: Yes Eyes: Positive: Conjunctiva Clear ENT: Positive: Hearing grossly normal, Uvula midline, Other - see image. Negative: Nasal congestion, Nasal drainage, Tonsillar swelling, Tonsillar exudate, Trismus, Muffled voice, Hoarse voice, Sinus tenderness Dental: Positive: Other: - upper dentures Neck: Positive: Supple, Nontender, No Lymphadenopathy Respiratory: Positive: Lungs clear, Normal breath sounds, No respiratory distress, No accessory muscle use Cardiovascular: Positive: RRR, No Murmur Musculoskeletal: Positive: ROM Intact, No Edema Neurological: Positive: Alert Psychological Exam: Normal Psychological: Positive: Normal Response To Family Skin Exam: Normal Images Head: 1 - tender/swollen Dental: 1 - parotid duct swollen/red Throat Pain/Nasal Course/Dx - Differential Dx/Diagnosis Provider Diagnosis: Sialadenitis Discharge ED - Sign-Out/Discharge Documenting (check all that apply): Patient Departure All imaging exams completed and their final reports reviewed: No Studies - Discharge Plan Condition: Stable Disposition: HOME Prescriptions: Cephalexin CAP* [Keflex CAP*] 500 mg PO TID #21 cap Patient Education Materials: Sialoadenitis (ED) Referrals: Gopal Willingham MD [Primary Care Provider] - As Soon As Possible Additional Instructions: heat fluids to ER for new or worsening symptoms - Billing Disposition and Condition Condition: STABLE Disposition: Home
== END 2019-07-18 13:58 | disposition home or self-care (01) ==
LOC: UCCORT 12:06
DX: K11.20 Sialoadenitis, unspecified (principal); E11.9 Type 2 diabetes mellitus without complications; I10 Essential (primary) hypertension; Z91.09 Other allergy status, other than to drugs and biological substances
CPT/HCPCS: 99212; G0463